=== PATIENT | female | born 1945 | race Caucasian/White ===

== ENCOUNTER 2017-06-29 11:25 | Emergency (ER) | payer OTHER ==
[~2017-06-29] VITALS: Ht 165.1 cm; Wt 62.5 kg
[~2017-06-29 11:25] MED LIST: LOPE2CAP PO; ONDA4TAB14 PO; [UNRECOGNIZED DRUG - REMARK]
[2017-06-29 11:26] VITALS: Ht 165.1 cm; Wt 62.5 kg
[2017-06-29] MEDS ORDERED: morphine 4 MG/ML VIAL IV STA (11:53)
[2017-06-29] MEDS ORDERED: SOD CHLORIDE 0.9% 1,000 ML IV STA (11:53)
[2017-06-29] MEDS ORDERED: ONDANSETRON 4 MG INJ IV STA (11:53)
[2017-06-29 12:30] LABS: BASOPHIL # 0.1 10^3/ul (0.0-0.1); EOSINOPHILS # 0.2 10^3/ul (0.0-0.5); EOSINOPHILS % 2.6 % (0.0-7.0); HEMATOCRIT 40.9 % (37.0-47.0); HEMOGLOBIN 13.7 g/dl (12.0-16.0); LYMPHOCYTES # 3.1 10^3/ul (0.8-2.9); LYMPHOCYTES % 36.4 % (15.0-51.0); MEAN CORPUSCULAR HEMOGLOBIN 30.3 pg (29.0-33.0); MEAN CORPUSCULAR HGB CONC 33.5 g/dl (32.0-37.0); MEAN CORPUSCULAR VOLUME 90.5 fl (82.0-101.0); MEAN PLATELET VOLUME 10.1 fl (7.4-10.4); MONOCYTE # 0.9 10^3/ul (0.3-0.9); MONOCYTES % 10.2 % (0.0-11.0); NEUTROPHIL # 4.3 10^3/ul (1.6-7.5); NEUTROPHILS % 49.6 % (39.0-77.0); PLATELET COUNT 276 10^3/UL (140-415); RED BLOOD COUNT 4.52 10^6/ul (4.20-5.40); RED CELL DISTRIBUTION WIDTH 13.7 % (11.5-14.5); WHITE BLOOD COUNT 8.6 10^3/ul (4.8-10.8)
[2017-06-29 12:34] LABS: ADD UMIC NO; UR ASCORBIC ACID NEGATIVE (NEGATIVE); UR BILIRUBIN (Dip) NEGATIVE (NEGATIVE); UR BLOOD (Dip) NEGATIVE (NEGATIVE); UR CLARITY CLEAR (CLEAR); UR COLOR STRAW (YELLOW); UR GLUCOSE (Dip) NEGATIVE (NEGATIVE); UR KETONES (Dip) NEGATIVE (NEGATIVE); UR LEUKOCYTE ESTERASE (Dip) NEGATIVE Leu/ul (NEGATIVE); UR NITRITE (Dip) NEGATIVE (NEGATIVE); UR SPECIFIC GRAVITY (Dip) 1.003 (1.003-1.030); UR TOTAL PROTEIN (Dip) NEGATIVE (NEGATIVE); UR UROBILINOGEN (Dip) NEGATIVE (NEGATIVE)
--- NOTE | 2017-06-29 12:50 | ERD ---
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 She does describe diffuse abdominal pain but does localize left lower quadrant that is moderate. She describes no nausea no vomiting no diarrhea. Possible mild constipation. No fevers or chills dysuria urgency or frequency. ROS All systems reviewed and are negative except as per history of present illness. Medications Home Meds Active Scripts Ondansetron (Ondansetron Odt) 4 Mg Tab.rapdis, 4 MG PO Q6H Y for NAUSEA AND/OR VOMITING, #30 TAB Prov:SUKHI SCHAEFFER MD 06/29/17 Hydrocodone/Acetaminophen ([place] 10-325 Tablet) 1 Each Tablet, 1 TAB PO Q6H Y for PAIN, #12 TAB Prov:SUKHI SCHAEFFER MD 06/29/17 Reported Medications Timolol Maleate* (Timoptic*) 0.25%-5ml Opht, 1 DROP BOTH EYES QAM, #1 EA 06/29/17 Latanoprost (Latanoprost) 2.5 Ml Drops, 1 DROP BOTH EYES QHS, #1 BOTTLE 06/29/17 Enalapril Maleate* (Enalapril Maleate*) 20 Mg Tablet, 20 MG PO DAILY, TAB 06/29/17 Discontinued Reported Medications [high blood pressure meds/name/dose unknown] No Conflict Check 03/20/14 Discontinued Scripts Loperamide Hcl* (Imodium*) 2 Mg Capsule, 2 MG PO .AFTER EA LOOSE BM Y for DIARRHEA, #10 TAB Prov:ANEL CARR MD 11/09/16 Ondansetron (Ondansetron Odt) 4 Mg Tab.rapdis, 4 MG PO Q6H Y for NAUSEA AND/OR VOMITING, #10 TAB Prov:ANEL CARR MD 11/09/16 Allergies Allergies: Coded Allergies: No Known Allergy (Unverified , 11/08/16) PMhx/Soc History of Surgery: No Anesthesia Reaction: No Hx Neurological Disorder: No Hx Respiratory Disorders: No Hx Cardiac Disorders: Yes (Hypertension) Hx Psychiatric Problems: No Hx Miscellaneous Medical Probl: No Hx Alcohol Use: No Hx Substance Use: No Hx Tobacco Use: No Smoking Status: Never smoker FmHx Family History: No diabetes Physical Exam Vitals Vital Signs Date Time Temp Pulse Resp B/P Pulse Ox O2 Delivery O2 Flow Rate FiO2 06/29/17 13:28 65 17 154/77 100 Room Air 06/29/17 12:20 74 20 133/70 97 06/29/17 11:26 99.2 83 20 168/74 94 Physical Exam General: Well developed, well nourished, no acute distress Head: Normocephalic, atraumatic. Eyes: Pupils equally reactive, EOM intact ENT: Moist mucous membranes Neck: Supple, no lymphadenopathy Respiratory: Lungs clear bilaterally, no distress Cardiovascular: RRR, no murmurs, rubs, or gallops Abdominal: Soft, very mild diffuse tenderness with slight localization left lower quadrant without rebound or guarding, no pulsatile mass. : Deferred MSK: No edema, no unilateral swelling, 5/5 strength Neurologic: Alert and oriented, moving all extremities, normal speech, no focal weakness, no cerebellar signs Skin: No rash Psych: Normal mood Result Diagram: 06/29/17 1215 06/29/17 1215 Results 24 hrs Laboratory Tests Test 06/29/17 12:15 White Blood Count 8.610^3/ul Red Blood Count 4.5210^6/ul Hemoglobin 13.7g/dl Hematocrit 40.9% Mean Corpuscular Volume 90.5fl Mean Corpuscular Hemoglobin 30.3pg Mean Corpuscular Hemoglobin Concent 33.5g/dl Red Cell Distribution Width 13.7% Platelet Count 73316^3/UL Mean Platelet Volume 10.1fl Neutrophils % 49.6% Lymphocytes % 36.4% Monocytes % 10.2% Eosinophils % 2.6% Basophils % 1.0% Nucleated Red Blood Cells % 0.0/100WBC Neutrophils # 4.310^3/ul Lymphocytes # 3.110^3/ul Monocytes # 0.910^3/ul Eosinophils # 0.210^3/ul Basophils # 0.110^3/ul Nucleated Red Blood Cells # 0.010^3/ul Urine Color STRAW Urine Clarity CLEAR Urine pH 7.0 Urine Specific [place] 1.003 Urine Ketones NEGATIVEmg/dL Urine Nitrite NEGATIVEmg/dL Urine Bilirubin NEGATIVEmg/dL Urine Urobilinogen NEGATIVEmg/dL Urine Leukocyte Esterase NEGATIVELeu/ul Urine Hemoglobin NEGATIVEmg/dL Urine Glucose NEGATIVEmg/dL Urine Total Protein NEGATIVEmg/dl Sodium Level 146mmol/L Potassium Level 4.1mmol/L Chloride Level 103mmol/L Carbon Dioxide Level 26mmol/L Anion Gap 21 Blood Urea Nitrogen 12mg/dl Creatinine 0.59mg/dl Glucose Level 106mg/dl Calcium Level 10.0mg/dl Total Bilirubin 0.4mg/dl Direct Bilirubin 0.00mg/dl Indirect Bilirubin 0.4mg/dl Aspartate Amino Transf (AST/SGOT) 36IU/L Alanine Aminotransferase (ALT/SGPT) 46IU/L Alkaline Phosphatase 79IU/L Total Protein 8.3g/dl Albumin 4.4g/dl Globulin 3.90g/dl Albumin/Globulin Ratio 1.12 Lipase 224U/L Current Medications Medications (Trade) Dose Ordered Sig/Jeferson Route PRN Reason Start Time Stop Time Status Last Admin Dose Admin Sodium Chloride (NS) 1,000 ml @ 1,000 mls/hr Q1H STAT IV 06/29/17 11:53 06/29/17 12:52 DC 06/29/17 12:23 Morphine Sulfate (morphine) 4 mg ONCE STAT IV 06/29/17 11:53 06/29/17 11:55 DC 06/29/17 12:29 Ondansetron HCl (Zofran Inj) 4 mg ONCE STAT IV 06/29/17 11:53 06/29/17 11:55 DC 06/29/17 12:24 Procedures/MDM EKG, MONITORS, & DIAGNOSTIC IMAGING: CT abdomen and pelvis: IMPRESSION: Large left ovarian cyst, larger in size since prior examination. Follow-up with MRI pelvis with without contrast is recommended to assess for complex features. Small right ovarian cyst, grossly unchanged in size. Mild bronchiolitis of the right middle lobe. Fatty infiltration of the liver. Diverticulosis. No evidence of diverticulitis. RPTAT: [facility] LAB INTERPRETATION: No significant leukocytosis MEDICAL DECISION MAKING: The patient presents with left lower quadrant abdominal pain. Broad differential including acute diverticulitis, given the patient's age CT imaging is appropriate. ER COURSE: The patient was given pain control medication. Her CT shows a large left ovarian cyst. The patient verbalizes that this is a known diagnosis and she states that she is scheduled for operative intervention in the next 1-2 months. I believe her pain is secondary to this process. Given the chronicity of this pain I do not believe this is consistent with ovarian torsion, given the patient's age, outpatient management is appropriate. The patient was informed that this could represent malignancy, she has appropriate follow-up. I spoke to the patient's primary care physician, Dr. Dan who agrees that he will follow up with the patient. I kept the patient and/or family informed of laboratory and diagnostic imaging results throughout the emergency room course. DISPOSITION PLAN: We discussed follow up with the patient's primary care doctor within 24 to 48 hours as needed. We also discussed return to the emergency room for worsening symptoms or worsening condition. Outpatient referral: [facility] Discharge Medications: [place] We discussed the use of narcotics including avoidance of operating heavy machinery and driving as well as its addictive properties. Departure Diagnosis: Primary Impression: Abdominal pain, LLQ (left lower quadrant) Additional Impression: Left ovarian cyst Condition: Stable SUKHI SCHAEFFER MD Jun 29, 2017 12:50
[2017-06-29 13:08] LABS: ALBUMIN 4.4 g/dl (3.3-4.9); ALBUMIN/GLOBULIN RATIO 1.12; BILIRUBIN,INDIRECT 0.4 mg/dl (0-1.1); BILIRUBIN,TOTAL 0.4 mg/dl (0.2-1.3); CREATININE 0.59 mg/dl (0.44-1.00); POTASSIUM 4.1 mmol/L (3.5-5.1); TOTAL PROTEIN 8.3 g/dl (6.1-8.1)
--- NOTE | 2017-06-29 13:13 | RADRPT ---
PROCEDURE: CT Abdomen and Pelvis without contrast. CLINICAL INDICATION: Worsening left lower quadrant pain for 1 week. TECHNIQUE: Multiple contiguous axial CT images of the abdomen and pelvis were obtained without the administration of intravenous contrast. Coronal and sagittal reconstructions were also performed. CTDIvol (mGy): 9.97; Total Exam DLP (mGy-cm): 531.35. One or more of the following dose reduction techniques were utilized: - Automated exposure control. - Adjustment of the mA and/or kV according to patient size. - Use of iterative reconstruction technique. COMPARISON: Pelvic ultrasound 09/04/2015. CT abdomen/pelvis 06/29/2015. FINDINGS: Limited imaging of the lower thorax demonstrates mild bronchiolitis within the right middle lobe. The liver is diffusely low in attenuation compatible with fatty infiltration. The liver measures ap proximately 30 HU in density. The gallbladder, spleen, pancreas and adrenal glands are unremarkable. The kidneys are symmetric in size. There are no nephroureteral stones. There is no hydronephrosis o r abnormal perinephric inflammation. The abdominal aorta is normal in caliber. There is no periaortic / retroperitoneal lymphadenopathy. The stomach and small intestines are unremarkable. Diffuse diverticulosis is observed. The appendi x is normal. There are no focal inflammatory changes of the mesentery. There is no mesenteric lymp hadenopathy. There is no ascites. The bladder is partially distended. The uterus is absent. There is a 7.2 cm circumscribed homogene ous cyst of the left ovary measuring approximately 24 HU in density. This cyst measured approximatel y 4.2 cm in greatest dimension on prior examination. An adjacent small follicle is observed. There is a 2.7 x 2.1 cm cyst of the right ovary which is similar in appearance when compared to prior exam ination. There is no free pelvic fluid. There is no pelvic sidewall or inguinal lymphadenopathy. Degenerative changes of the spine are present. Body wall soft tissues are unremarkable. IMPRESSION: Large left ovarian cyst, larger in size since prior examination. Follow-up with MRI pelvis with with out contrast is recommended to assess for complex features. Small right ovarian cyst, grossly unchanged in size. Mild bronchiolitis of the right middle lobe. Fatty infiltration of the liver. Diverticulosis. No evidence of diverticulitis. RPTAT: [facility] .Veena Ramos MD, MD Date Time Electronically viewed and signed by .Veena Ramos MD, MD on 06/29/2017 13:13 .T/
[2017-06-29] MEDS ORDERED: LATA2.5D2 BOTH EYES (13:17)
[2017-06-29] MEDS ORDERED: ENAL20TA PO (13:17)
[2017-06-29] MEDS ORDERED: TML25OP5 BOTH EYES (13:18)
[2017-06-29 13:28] VITALS: BP 154/77; PULSE 65; RESP 17
[2017-06-29] MEDS ORDERED: HYDR-902 PO (13:35)
[2017-06-29] MEDS ORDERED: ONDA4TAB14 PO (13:35)
== END 2017-06-29 14:04 | disposition home or self-care (01) ==
LOC: E/R 11:25
DX: R10.32 Left lower quadrant pain (principal); N83.202 Unspecified ovarian cyst, left side; I10 Essential (primary) hypertension
CPT/HCPCS: 74176; 80053; 81003; 83690; 85025; J2270; J2405; J7030; 36415; 96374; 96375